=== PATIENT | male | born 1975 | race Caucasian/White ===

== ENCOUNTER 2019-10-02 07:27 | Emergency (ER) | payer SELFPAY ==
[~2019-10-02] VITALS: Ht 167.6 cm; Wt 68.0 kg
[2019-10-02 07:28] VITALS: BP 139/95
[2019-10-02 07:56] VITALS: BP 139/95
--- NOTE | 2019-10-02 07:56 | NUR ---
PATIENT BIB [facility]. PATIENT EXAMINED BY DR. Perkins. PATIENT MEDICALLY CLEARED AND RELEASED IN CUSTODY IN STABLE CONDITION. ORIGINAL PRE-BOOK FORM GIVEN TO [facility] Officer.
== END 2019-10-02 07:56 | disposition home or self-care (01) ==
LOC: MED 07:27
DX: M79.10 Myalgia, unspecified site (principal); Z04.1 Encounter for examination and observation following transport accident; Z02.89 Encounter for other administrative examinations
CPT/HCPCS: 99283